=== PATIENT | female | born 1995 | race Caucasian/White ===

== ENCOUNTER 2018-03-11 23:05 | Emergency (ER) | payer SELFPAY ==
[2018-03-11 23:12] VITALS: BP 131/77
[2018-03-11] MEDS ORDERED: ONDANSETRON HCL INJ/PF 4 MG/2 ML SDV IV ONE (23:52)
[2018-03-11] MEDS ORDERED: NORMAL SALINE 1000 ML 1,000 ML IV ONE (23:52)
--- NOTE | 2018-03-11 23:55 | ER Document Report ---
ED Medical Screen (RME) - General Chief Complaint: Abdominal Pain Stated Complaint: LOWER BACK PAIN/THROWING UP BLOOD/NAUSEA Time Seen by Provider: 03/11/18 23:51 Notes: Patient is a 22-year-old female presenting to the emergency department complaining of right lower groin pain. Patient states she was also nauseated and vomited x1 in the emergency room. Patient states there was red in her vomit but she also states that she ate pizza this afternoon and thinks it was remnants of pizza. Patient denies dysuria or vaginal discharge. Patient states earlier she was having pain in her right lower back which has since subsided. Patient states the only pain she has currently is in her right lower groin. Past medical history: None Medications: control allergies: None Physical exam: No McBurney's point tenderness or Best's sign. Pain in right groin and suprapubic region. No CVA tenderness bilaterally. TRAVEL OUTSIDE OF THE [place] IN LAST 30 DAYS: No - Related Data Allergies/Adverse Reactions: No Known Allergies Allergy (Verified 07/20/14 17:16) Past Medical History Psychiatric Medical History: Reports: Hx Anxiety, Hx Depression Past Surgical History: Reports: Hx Tonsillectomy - T/A - Immunizations Immunizations up to date: Yes Hx Diphtheria, Pertussis, Tetanus Vaccination: Yes Physical Exam - Vital signs Vitals: Temp Pulse Resp BP Pulse Ox 98.7 F 79 16 131/77 H 100 03/11/18 23:10 03/11/18 23:10 03/11/18 23:10 03/11/18 23:10 03/11/18 23:10 Course - Vital Signs Vital signs: Temp Pulse Resp BP Pulse Ox 98.7 F 79 16 131/77 H 100 03/11/18 23:10 03/11/18 23:10 03/11/18 23:10 03/11/18 23:10 03/11/18 23:10 Doctor's Discharge - Discharge Referrals: BROYD RODRIGUEZ MD [Primary Care Provider] - Follow up as needed
== END 2018-03-12 00:18 | disposition left against medical advice (07) ==
LOC: ER 23:05
DX: R10.30 Lower abdominal pain, unspecified (principal)
CPT/HCPCS: 99281